=== PATIENT | male | born 1930 | race Caucasian/White ===

== ENCOUNTER 2020-01-23 11:12 | Inpatient (IN) | payer MEDICARE, BC ==
[~2020-01-23] VITALS: Ht 167.6 cm; Wt 80.5 kg
[~2020-01-23 11:12] MED LIST: ALLO100T PO; ATOR20TA PO; BUPR150T8 PO; CITA20TA28 PO; CLOP75TA35 PO; LANS30CA37 PO; OLME20TA15 PO
[2020-01-23 11:58] LABS: BASOPHILS % (AUTO) 0.4 % (0-1); EOSINOPHILS # (AUTO) 0.1 X10'3 (0-0.9); EOSINOPHILS % (AUTO) 0.8 % (0-6); HEMOGLOBIN 14.9 g/dl (14.0-17.9); LYMPHOCYTES % (AUTO) 8.7 % (21-51); MEAN CORPUSCULAR HEMOGLOBIN 33.2 PG (27.0-31.0); MEAN CORPUSCULAR HGB CONC 32.3 g/dL (33.0-36.5); MEAN CORPUSCULAR VOLUME 102.5 FL (78-98); MEAN PLATELET VOLUME 9.2 FL (7.4-10.4); MONOCYTES % (AUTO) 8.8 % (2-12); NEUTROPHILS # (AUTO) 9.5 X10'3 (1.8-7.7); NEUTROPHILS % (AUTO) 81.3 % (42-75); PLATELET COUNT 191 X10'3 (140-440); RED BLOOD COUNT 4.49 X10'6 (4.70-6.10); WHITE BLOOD COUNT 11.7 X10'3 (4.5-11.0)
[2020-01-23 12:14] LABS: ALANINE AMINOTRANSFERASE 478 U/L (12-78); ALBUMIN 3.1 G/DL (3.4-5.0); ALBUMIN/GLOBULIN RATIO 0.9 (1.1-1.5); ALKALINE PHOSPHATASE 402 IU/L (46-116); ANION GAP 9 (8-16); ASPARTATE AMINO TRANSFERASE 193 U/L (10-37); BILIRUBIN,TOTAL 1.5 MG/DL (0.1-1.0); BLOOD UREA NITROGEN 41 MG/DL (7-18); BUN/CREATININE RATIO 25.3 (5.4-32.0); CALCIUM 8.5 MG/DL (8.5-10.1); CHLORIDE 108 MMOL/L (99-107); CREATININE 1.62 MG/DL (0.60-1.10); GLUCOSE 93 MG/DL (70-104); POTASSIUM 4.3 MMOL/L (3.5-5.1); SODIUM 141 MMOL/L (135-145); TOTAL CARBON DIOXIDE 23.6 MMOL/L (24-32); TOTAL PROTEIN 6.6 G/DL (6.4-8.2); eGFR 41 ML/MIN
[2020-01-23 12:56] LABS: GIANT PLATELET FEW; LARGE PLATELETS FEW; PLATELET ESTIMATE NORMAL
[2020-01-23 13:18] LABS: D-DIMER 2.05 MG/L FEU (0-0.50); PARTIAL THROMBOPLASTIN TIME 25 SECONDS (22-32)
[2020-01-23 13:30] LABS: LIPASE 202 U/L (73-393); MAGNESIUM 2.4 MG/DL (1.5-2.4)
[2020-01-23] MEDS ORDERED: piperacillin/tazo 3.375gm/50ml 50 ML IV ONE (13:50)
[2020-01-23] MEDS ORDERED: ondansetron/PF 4mg/2ml inj IV PRN (13:55)
[2020-01-23] MEDS ORDERED: magnesium hydroxide 30ml (MOM) UD suspension PO PRN (13:55)
[2020-01-23] MEDS ORDERED: acetaminophen 325mg tablet PO PRN (13:55)
[2020-01-23] MEDS ORDERED: HYDROcodone/acetaminophen 5mg/325mg tablet PO PRN (13:55)
[2020-01-23] MEDS ORDERED: morphine 2 MG/ML inj. syringe IV PRN ×2 (13:55)
[2020-01-23] MEDS ORDERED: mag hydrox/Alum hydrox/simeth 30ml oral suspension PO PRN (13:55)
--- NOTE | 2020-01-23 13:56 | NUR ---
Attempted to collect urine for UA. Pt unable to provide enough for sample.
[2020-01-23] MEDS ORDERED: BUPR150T6 PO (14:39)
[2020-01-23] MEDS ORDERED: OMEP-50 PO (14:39)
[2020-01-23] MEDS ORDERED: METO25TA6 PO (14:39)
[2020-01-23] MEDS ORDERED: AZIT-63 PO (14:39)
[2020-01-23] MEDS ORDERED: OLME20TA14 PO (14:39)
[2020-01-23] MEDS ORDERED: ALBU17AE26 PO (14:39)
[2020-01-23] MEDS: furosemide 20 MG/2 ML vial IV SCH ×2 (14:43→21:27)
[2020-01-23 15:32] VITALS: BP 114/51
[2020-01-23 15:38] LABS: CLARITY,URINE CLEAR (Clear); COLOR,URINE YELLOW (Yellow); GLUCOSE, URINE NEGATIVE (Neg); KETONES,URINE NEGATIVE (Neg); LEUKOCYTE ESTERASE ,URINE NEGATIVE (Neg); NITRITES, URINE NEGATIVE (Neg); OCCULT BLOOD,URINE NEGATIVE (Neg); PH,URINE 5.5 (4.8-8.0); PROTEIN,URINE TRACE mg/dl (Neg)
[2020-01-23 15:39] LABS: UA COLLECTION TYPE CLN CATCH MIDSTREAM
[2020-01-23 15:46] LABS: BACTERIA,URINE FEW /HPF (Neg); COARSE GRANULAR CAST 0-3 /LPF (NEGATIVE); MUCUS STRANDS MODERATE /LPF (Neg); RBC,URINE NONE SEEN /HPF (0-2); SQUAMOUS EPITHELIAL CELL,UR MODERATE /LPF (FEW); WBC,URINE 0-4 /HPF (0-4)
[2020-01-23 18:00] VITALS: BP 115/83
--- NOTE | 2020-01-23 18:04 | NUR ---
Problems reprioritized. Patient report given, questions answered & plan of care reviewed with PREETI Pierce.
--- NOTE | 2020-01-23 18:05 | NUR ---
Patient in room PCU 3025. I have received report from Haritha Urban RN and had the opportunity to ask questions and assume patient care.
[2020-01-23] MEDS: metoprolol tartrate 25mg tablet PO SCH (20:00)
[2020-01-23] MEDS ORDERED: atorvastatin 20mg tablet PO SCH (21:00)
[2020-01-23] MEDS: citalopram 20mg tablet PO SCH (21:21)
[2020-01-23] MEDS: clopidogrel 75mg tablet PO SCH (21:21)
[2020-01-23] MEDS: allopurinol 100mg tablet PO SCH (21:27)
[2020-01-23] MEDS: losartan 50mg tablet PO SCH (21:28)
[2020-01-23 22:00] VITALS: BP 122/84
[2020-01-24] VITALS (7 sets, daily range): BP systolic 95–128; BP diastolic 38–64
[2020-01-24 05:52] LABS: BASOPHILS % (AUTO) 0.2 % (0-1); EOSINOPHILS # (AUTO) 0.1 X10'3 (0-0.9); EOSINOPHILS % (AUTO) 1.1 % (0-6); HEMATOCRIT 41.2 % (42.0-52.0); HEMOGLOBIN 13.3 g/dl (14.0-17.9); LYMPHOCYTES # (AUTO) 1.4 X10'3 (1.1-4.8); LYMPHOCYTES % (AUTO) 14.1 % (21-51); MEAN CORPUSCULAR HEMOGLOBIN 32.9 PG (27.0-31.0); MEAN CORPUSCULAR HGB CONC 32.4 g/dL (33.0-36.5); MEAN CORPUSCULAR VOLUME 101.6 FL (78-98); MEAN PLATELET VOLUME 9.4 FL (7.4-10.4); MONOCYTES % (AUTO) 9.7 % (2-12); NEUTROPHILS # (AUTO) 7.4 X10'3 (1.8-7.7); NEUTROPHILS % (AUTO) 74.9 % (42-75); PLATELET COUNT 172 X10'3 (140-440); RED BLOOD COUNT 4.05 X10'6 (4.70-6.10); RED CELL DISTRIBUTION WIDTH 14.9 % (11.5-14.5); WHITE BLOOD COUNT 9.9 X10'3 (4.5-11.0)
--- NOTE | 2020-01-24 06:17 | NUR ---
Problems reprioritized. Patient report given, questions answered & plan of care reviewed with Haritha ÁLVAREZ.
[2020-01-24 06:18] LABS: ALANINE AMINOTRANSFERASE 342 U/L (12-78); ALBUMIN 2.7 G/DL (3.4-5.0); ALBUMIN/GLOBULIN RATIO 0.9 (1.1-1.5); ALKALINE PHOSPHATASE 315 IU/L (46-116); ANION GAP 6 (8-16); ASPARTATE AMINO TRANSFERASE 116 U/L (10-37); BILIRUBIN,TOTAL 1.3 MG/DL (0.1-1.0); BLOOD UREA NITROGEN 40 MG/DL (7-18); BUN/CREATININE RATIO 25.5 (5.4-32.0); CALCIUM 8.4 MG/DL (8.5-10.1); CHLORIDE 109 MMOL/L (99-107); CREATININE 1.57 MG/DL (0.60-1.10); GLUCOSE 71 MG/DL (70-104); POTASSIUM 3.8 MMOL/L (3.5-5.1); SODIUM 143 MMOL/L (135-145); TOTAL CARBON DIOXIDE 27.6 MMOL/L (24-32); TOTAL PROTEIN 5.6 G/DL (6.4-8.2); eGFR 42 ML/MIN
--- NOTE | 2020-01-24 06:26 | NUR ---
Patient in room PCU 3025. I have received report from Theo ÁLVAREZ and had the opportunity to ask questions and assume patient care.
--- NOTE | 2020-01-24 06:26 | NUR ---
Patient in room U 3025. I have received report from Theo ÁLVAREZ and had the opportunity to ask questions and assume patient care. Pt is stable sleeping in room.
[2020-01-24] MEDS: pantoprazole 40mg Tablet.DR PO SCH (07:29)
[2020-01-24] MEDS: buPROPion SR 150mg tablet PO SCH (07:40)
[2020-01-24] MEDS: enoxaparin 40mg/0.4ml syringe SUBCUT SCH (07:42)
[2020-01-24] MEDS: furosemide 20 MG/2 ML vial IV SCH ×2 (07:44→19:59)
[2020-01-24] MEDS: metoprolol tartrate 25mg tablet PO SCH ×2 (08:00→19:26)
--- NOTE | 2020-01-24 10:16 | NUR ---
Held metoprolol due to pts b/p being low, rechecked b/p still low at 1010, measured automatic cuff 88/28 (48), 100/44 (62), manual 95/50 (65). Pt states "feels fine" no change in mentation.
--- NOTE | 2020-01-24 16:14 | NUR ---
Malnutrition consult: Pt reports 2-13 lb wt loss with decreased appetite per malnutrition risk screen with RN. Pt with no recent wt hx however appears well developed/well nourished per ED report with current overweight BMI. Pt reports decreased PO intake secondary to postprandial early satiety per H&P. Pt currently on a heart healthy diet documented with 100% PO intake at breakfast and lunch meeting nutrient needs, although decreased PO intake is expected given geriatric age. Pt with BLE 2+ mild edema and no documented decrease in muscle strength. Pt currently lacks a minimum of two criteria for malnutrition. Will continue to follow. Addendum: 01/24/20 at [address] Amended: Links added.
--- NOTE | 2020-01-24 18:18 | NUR ---
Problems reprioritized. Patient report given, questions answered & plan of care reviewed with PREETI Pham.
--- NOTE | 2020-01-24 18:18 | NUR ---
[place] documentation: I have reviewed and agree with all interventions, assessments performed and documented by PREETI Bridges.
--- NOTE | 2020-01-24 18:18 | NUR ---
Problems reprioritized. Patient report given, questions answered & plan of care reviewed with Vero Roach.
--- NOTE | 2020-01-24 18:18 | NUR ---
[place] Medication Administration: For this medication-pass time frame, all medication were reviewed, dispensed, administered and documented per hospital policy by PREETI Bridges.
[2020-01-24] MEDS: citalopram 20mg tablet PO SCH (19:58)
[2020-01-24] MEDS: clopidogrel 75mg tablet PO SCH (19:58)
[2020-01-24] MEDS: allopurinol 100mg tablet PO SCH (19:59)
[2020-01-24] MEDS: losartan 50mg tablet PO SCH (21:00)
[2020-01-25 02:00] VITALS: BP 108/48
[2020-01-25 06:00] VITALS: BP 122/60
[2020-01-25 06:03] LABS: ALBUMIN 2.7 G/DL (3.4-5.0); ANION GAP 11 (8-16); BLOOD UREA NITROGEN 32 MG/DL (7-18); BUN/CREATININE RATIO 23.9 (5.4-32.0); CALCIUM 7.9 MG/DL (8.5-10.1); CHLORIDE 108 MMOL/L (99-107); CREATININE 1.34 MG/DL (0.60-1.10); GLUCOSE 82 MG/DL (70-104); POTASSIUM 3.3 MMOL/L (3.5-5.1); SODIUM 145 MMOL/L (135-145); TOTAL CARBON DIOXIDE 26.1 MMOL/L (24-32); eGFR 50 ML/MIN
[2020-01-25 06:09] LABS: BASOPHILS % (AUTO) 0.2 % (0-1); EOSINOPHILS # (AUTO) 0.2 X10'3 (0-0.9); HEMATOCRIT 41.4 % (42.0-52.0); HEMOGLOBIN 13.8 g/dl (14.0-17.9); LYMPHOCYTES # (AUTO) 1.3 X10'3 (1.1-4.8); LYMPHOCYTES % (AUTO) 14.4 % (21-51); MEAN CORPUSCULAR HEMOGLOBIN 33.7 PG (27.0-31.0); MEAN CORPUSCULAR HGB CONC 33.3 g/dL (33.0-36.5); MEAN PLATELET VOLUME 9.6 FL (7.4-10.4); MONOCYTES # (AUTO) 0.9 X10'3 (0-0.9); MONOCYTES % (AUTO) 9.7 % (2-12); NEUTROPHILS # (AUTO) 6.9 X10'3 (1.8-7.7); NEUTROPHILS % (AUTO) 73.7 % (42-75); PLATELET COUNT 173 X10'3 (140-440); RED BLOOD COUNT 4.09 X10'6 (4.70-6.10); RED CELL DISTRIBUTION WIDTH 14.9 % (11.5-14.5); WHITE BLOOD COUNT 9.4 X10'3 (4.5-11.0)
--- NOTE | 2020-01-25 06:19 | NUR ---
Problems reprioritized. Patient report given, questions answered & plan of care reviewed with PREETI Zamora.
--- NOTE | 2020-01-25 06:30 | NUR ---
Received report from Vero ÁLVAREZ
[2020-01-25] MEDS: buPROPion SR 150mg tablet PO SCH (07:38)
[2020-01-25] MEDS: pantoprazole 40mg Tablet.DR PO SCH (07:38)
[2020-01-25] MEDS: enoxaparin 40mg/0.4ml syringe SUBCUT SCH (07:39)
[2020-01-25] MEDS: furosemide 20 MG/2 ML vial IV SCH (07:39)
[2020-01-25] MEDS: metoprolol tartrate 25mg tablet PO SCH (07:45)
[2020-01-25] MEDS ORDERED: FURO-150 PO (10:23)
[2020-01-25 10:32] LABS: ALANINE AMINOTRANSFERASE 265 U/L (12-78); ALBUMIN/GLOBULIN RATIO 0.8 (1.1-1.5); ALKALINE PHOSPHATASE 278 IU/L (46-116); ASPARTATE AMINO TRANSFERASE 75 U/L (10-37); BILIRUBIN,DIRECT 0.4 MG/DL (0-0.3); BILIRUBIN,TOTAL 1.4 MG/DL (0.1-1.0); TOTAL PROTEIN 5.9 G/DL (6.4-8.2)
[2020-01-25 11:00] VITALS: BP 134/71
--- NOTE | 2020-01-25 13:59 | NUR ---
Patient was discharged IV and tele was removed from patient. Patient was alert and oriented at time of discharge. Medication was called into [facility] on [address]
== END 2020-01-25 13:22 | disposition home or self-care (01) | DRG 291 ==
LOC: ER 11:13 → ED HOLD 13:54 → PCU 3S 15:26
PROVIDERS: ADMIT Internal Medicine; ATTEND Internal Medicine
DX: I13.0 Hypertensive heart and chronic kidney disease with heart failure and stage 1 through stage 4 chronic kidney disease, or unspecified chronic kidney disease (principal); I50.33 Acute on chronic diastolic (congestive) heart failure; E87.2 Acidosis; N17.9 Acute kidney failure, unspecified; E78.5 Hyperlipidemia, unspecified; F32.9 Major depressive disorder, single episode, unspecified; G47.30 Sleep apnea, unspecified; K80.20 Calculus of gallbladder without cholecystitis without obstruction; G62.9 Polyneuropathy, unspecified; G89.29 Other chronic pain; K21.9 Gastro-esophageal reflux disease without esophagitis; M10.9 Gout, unspecified; I25.10 Atherosclerotic heart disease of native coronary artery without angina pectoris; K76.1 Chronic passive congestion of liver; N18.9 Chronic kidney disease, unspecified; Z79.02 Long term (current) use of antithrombotics/antiplatelets; Z85.46 Personal history of malignant neoplasm of prostate; Z87.891 Personal history of nicotine dependence; Z90.49 Acquired absence of other specified parts of digestive tract; Z95.0 Presence of cardiac pacemaker; Z95.1 Presence of aortocoronary bypass graft; Z79.899 Other long term (current) drug therapy; I25.2 Old myocardial infarction
CPT/HCPCS: 36415; 71045; 76700; 80048; 80053; 80076; 81001; 83605; 83690; 83735; 83880; 84145; 85025; 85379; 85610; 85730; 87040; 87081; 93306; 99285; G0378; J1650; J1940; J2543

== ENCOUNTER 2020-01-29 16:19 | Inpatient (IN) | payer MEDICARE, BC ==
[~2020-01-29] VITALS: Ht 167.6 cm; Wt 77.3 kg
[~2020-01-29 16:19] MED LIST changes: +ALBU17AE26 PO; +AZIT-63 PO; +BUPR150T6 PO; -BUPR150T8 PO; +FURO-150 PO; -LANS30CA37 PO; +METO25TA6 PO; +OLME20TA14 PO; -OLME20TA15 PO; +OMEP-50 PO
[2020-01-29 17:06] LABS: BASOPHILS % (AUTO) 0.2 % (0-1); EOSINOPHILS % (AUTO) 0.1 % (0-6); HEMATOCRIT 45.6 % (42.0-52.0); HEMOGLOBIN 14.8 g/dl (14.0-17.9); LYMPHOCYTES # (AUTO) 0.9 X10'3 (1.1-4.8); LYMPHOCYTES % (AUTO) 8.3 % (21-51); MEAN CORPUSCULAR HEMOGLOBIN 33.4 PG (27.0-31.0); MEAN CORPUSCULAR HGB CONC 32.5 g/dL (33.0-36.5); MEAN CORPUSCULAR VOLUME 102.9 FL (78-98); MEAN PLATELET VOLUME 9.5 FL (7.4-10.4); MONOCYTES # (AUTO) 0.9 X10'3 (0-0.9); MONOCYTES % (AUTO) 7.5 % (2-12); NEUTROPHILS # (AUTO) 9.6 X10'3 (1.8-7.7); NEUTROPHILS % (AUTO) 83.9 % (42-75); PLATELET COUNT 182 X10'3 (140-440); RED BLOOD COUNT 4.43 X10'6 (4.70-6.10); WHITE BLOOD COUNT 11.4 X10'3 (4.5-11.0)
[2020-01-29] MEDS ORDERED: FURO20TA4 PO (17:18)
[2020-01-29 17:23] LABS: ALANINE AMINOTRANSFERASE 838 U/L (12-78); ALBUMIN 3.2 G/DL (3.4-5.0); ALBUMIN/GLOBULIN RATIO 0.9 (1.1-1.5); ALKALINE PHOSPHATASE 282 IU/L (46-116); ANION GAP 10 (8-16); ASPARTATE AMINO TRANSFERASE 789 U/L (10-37); BILIRUBIN,TOTAL 3.1 MG/DL (0.1-1.0); BLOOD UREA NITROGEN 44 MG/DL (7-18); BUN/CREATININE RATIO 21.3 (5.4-32.0); CALCIUM 8.6 MG/DL (8.5-10.1); CHLORIDE 103 MMOL/L (99-107); CREATININE 2.07 MG/DL (0.60-1.10); GLUCOSE 90 MG/DL (70-104); SODIUM 139 MMOL/L (135-145); TOTAL CARBON DIOXIDE 26.5 MMOL/L (24-32); TOTAL PROTEIN 6.6 G/DL (6.4-8.2); eGFR 31 ML/MIN
[2020-01-29] MEDS ORDERED: aspirin 81mg tab.chew PO ONE ×2 (18:05→18:20)
[2020-01-29] MEDS ORDERED: heparin 10,000 units/1 ML INJ IV PRN (18:20)
[2020-01-29] MEDS ORDERED: heparin 10,000 units/1 ML INJ IV ONE (18:20)
[2020-01-29 18:54] LABS: PARTIAL THROMBOPLASTIN TIME 27 SECONDS (22-32)
[2020-01-29] MEDS: heparin 25,000 UNIT/250ml bag 250 ML IV SCH (19:22)
--- NOTE | 2020-01-29 21:17 | NUR ---
HOSPITALIST AT BEDSIDE
[2020-01-29] MEDS ORDERED: acetaminophen 325mg tablet PO PRN ×2 (21:40)
[2020-01-29] MEDS ORDERED: magnesium 4gm in 100ml NS 100 ML IV PRN (21:40)
[2020-01-29] MEDS ORDERED: HYDROcodone/acetaminophen 5mg/325mg tablet PO PRN (21:40)
[2020-01-29] MEDS ORDERED: potassium CL 10mEq/100ml bag 100 ML IV PRN ×2 (21:40)
[2020-01-29] MEDS ORDERED: morphine 2 MG/ML inj. syringe IV PRN (21:40)
[2020-01-29] MEDS ORDERED: magnesium 2GM in 50ml NS 50 ML IV PRN (21:40)
[2020-01-29] MEDS ORDERED: ondansetron/PF 4mg/2ml inj IV PRN (21:40)
[2020-01-29] MEDS ORDERED: potassium Cl 20 mEq SR tablet PO PRN ×2 (21:40)
[2020-01-29] MEDS ORDERED: magnesium Cl slow-release 64mg tablet PO PRN (21:40)
[2020-01-29 22:15] VITALS: BP 95/49
[2020-01-30 02:00] VITALS: BP 102/58
[2020-01-30] MEDS: heparin 25,000 UNIT/250ml bag 250 ML IV SCH (05:19)
[2020-01-30 06:00] VITALS: BP 116/62
[2020-01-30 06:09] LABS: BASOPHILS % (AUTO) 0.1 % (0-1); EOSINOPHILS % (AUTO) 0 % (0-6); HEMATOCRIT 42.7 % (42.0-52.0); HEMOGLOBIN 13.6 g/dl (14.0-17.9); LYMPHOCYTES # (AUTO) 1.6 X10'3 (1.1-4.8); LYMPHOCYTES % (AUTO) 10.5 % (21-51); MEAN CORPUSCULAR HEMOGLOBIN 32.9 PG (27.0-31.0); MEAN CORPUSCULAR HGB CONC 31.9 g/dL (33.0-36.5); MEAN CORPUSCULAR VOLUME 103.2 FL (78-98); MEAN PLATELET VOLUME 10.1 FL (7.4-10.4); MONOCYTES # (AUTO) 1.5 X10'3 (0-0.9); MONOCYTES % (AUTO) 10.2 % (2-12); NEUTROPHILS # (AUTO) 11.8 X10'3 (1.8-7.7); NEUTROPHILS % (AUTO) 79.2 % (42-75); PLATELET COUNT 136 X10'3 (140-440); RED BLOOD COUNT 4.14 X10'6 (4.70-6.10); RED CELL DISTRIBUTION WIDTH 15.9 % (11.5-14.5)
--- NOTE | 2020-01-30 06:34 | NUR ---
Problems reprioritized. Patient report given, questions answered & plan of care reviewed with GAYLA ÁLVAREZ.
[2020-01-30 06:37] LABS: ALBUMIN 2.9 G/DL (3.4-5.0); ALBUMIN/GLOBULIN RATIO 0.9 (1.1-1.5); ALKALINE PHOSPHATASE 244 IU/L (46-116); ANION GAP 11 (8-16); BILIRUBIN,TOTAL 2.9 MG/DL (0.1-1.0); BLOOD UREA NITROGEN 56 MG/DL (7-18); BUN/CREATININE RATIO 21.2 (5.4-32.0); CALCIUM 8.4 MG/DL (8.5-10.1); CHLORIDE 103 MMOL/L (99-107); CREATININE 2.64 MG/DL (0.60-1.10); GLUCOSE 54 MG/DL (70-104); MAGNESIUM 2.3 MG/DL (1.5-2.4); SODIUM 139 MMOL/L (135-145); TOTAL CARBON DIOXIDE 25.1 MMOL/L (24-32); eGFR 23 ML/MIN
[2020-01-30 06:38] LABS: ALANINE AMINOTRANSFERASE 2283 U/L (12-78)
--- NOTE | 2020-01-30 06:38 | NUR ---
Patient in room U 3014B. I have received report from Rosa ÁLVAREZ and had the opportunity to ask questions and assume patient care. Patient sitting up at edge of bed, no signs of distress, heparin gtt infusing.
--- NOTE | 2020-01-30 06:44 | NUR ---
Per report and verified with RN, heparin gtt is infusing at 7mL/hr currently. 2 RN verified and IV spreadsheet entered to correct rate.
[2020-01-30] MEDS: docusate sod 100mg capsule PO SCH ×2 (07:33→20:23)
[2020-01-30 07:34] LABS: ASPARTATE AMINO TRANSFERASE 3141 U/L (10-37)
[2020-01-30] MEDS: heparin, porcine 5000 units/ml vial SQ SCH ×2 (08:00→20:23)
[2020-01-30] MEDS: K and/or MAG REPLACEMENT MC SCH ×2 (08:00→20:00)
[2020-01-30] MEDS ORDERED: furosemide 40mg/4ml inj IV SCH (08:00)
--- NOTE | 2020-01-30 09:26 | NUR ---
AM dose of heparin SubQ held since patient is on a heparin gtt.
[2020-01-30] MEDS ORDERED: SINCALIDE IV ONE (09:30)
[2020-01-30] MEDS ORDERED: NORMAL SALINE IV ONE (09:30)
--- NOTE | 2020-01-30 10:02 | NUR ---
Malnutrition consult: Pt reports 2-13 lb wt loss with decreased appetite per malnutrition risk screen with RN. Recent wt hx in EMR is 80.45 kg from 01/22, current documented wt is 77.27 kg, however both weights are pt stated. Pt currently on Lasix during admit as well as home rx, wt likely to fluctuate d/t changes in fluid status. Per H&P 01/22 at last admit pt reported decreased PO intake secondary to postprandial early satiety which, is expected given geriatric age, however pt was with 100% PO intake 01/23-01/24 on heart healthy diet meeting nutrient needs. Pt currently with an active heart healthy diet order however NPO at this time. Pt with no documented significant decrease in muscle strength and with RLE 2+ mild edema. Pt appears well developed, well nourished per ED report and with current overweight BMI. Pt currently lacks a minimum of two criteria for malnutrition. Will continue to follow. Addendum: 01/30/20 at [address] Amended: Links added.
[2020-01-30 10:47] LABS: D-DIMER 1.52 MG/L FEU (0-0.50)
--- NOTE | 2020-01-30 10:55 | NUR ---
PAGER ID: [phone] MESSAGE: Haritha morales [id number]. Jannette Orellana [id number]. FYI d-dimer is 1.52 and lipase 492. Hepatitis panel still pending. Do you want VQ and US? Thanks!
[2020-01-30 11:00] VITALS: BP 117/60
--- NOTE | 2020-01-30 13:05 | NUR ---
Patient off floor to [place] for VQ scan
--- NOTE | 2020-01-30 13:45 | NUR ---
Patient returned from [facility]
[2020-01-30 15:00] VITALS: BP 103/55
[2020-01-30 18:00] VITALS: BP 111/66
--- NOTE | 2020-01-30 18:28 | NUR ---
PAGER ID: [phone] MESSAGE: Haritha morales [id number]. Janentte Orellana [id number]. Pt has orders for heparin SubQ but also Plavix restarted. Do you want to hold heparin SubQ? Also home meds need to be reconciled. Thanks!
--- NOTE | 2020-01-30 18:29 | NUR ---
Spoke with Dr. Chance atkins to continue heparin SubQ and Plavix.
--- NOTE | 2020-01-30 18:40 | NUR ---
Problems reprioritized. Patient report given, questions answered & plan of care reviewed with Francisca ÁLVAREZ.
--- NOTE | 2020-01-30 18:46 | NUR ---
Patient in room U 3014. I have received report from PREETI Mg and had the opportunity to ask questions and assume patient care. Addendum: 01/30/20 at 1847 by Ambreen Esquivel RN Amended: Links added.
[2020-01-30] MEDS: metoprolol tartrate 25mg tablet PO SCH (20:23)
[2020-01-30] MEDS: citalopram 20mg tablet PO SCH (20:23)
[2020-01-30] MEDS: diatr meglu/diatrizoate 30ml oral sol.-(3 dose) bottle PO SCH (20:24)
[2020-01-30] MEDS: clopidogrel 75mg tablet PO SCH (20:24)
[2020-01-30] MEDS: allopurinol 100mg tablet PO SCH (20:24)
[2020-01-30] MEDS ORDERED: losartan 50mg tablet PO SCH (21:00)
[2020-01-30] MEDS ORDERED: clopidogrel 75mg tablet PO SCH (21:00)
[2020-01-30 22:00] VITALS: BP 105/54
[2020-01-31 02:00] VITALS: BP 103/55
--- NOTE | 2020-01-31 06:16 | NUR ---
Problems reprioritized. Patient report given, questions answered & plan of care reviewed with PREETI Shultz.
[2020-01-31 06:22] LABS: BASOPHILS % (AUTO) 0.1 % (0-1); EOSINOPHILS % (AUTO) 0.3 % (0-6); HEMATOCRIT 43.2 % (42.0-52.0); HEMOGLOBIN 13.9 g/dl (14.0-17.9); LYMPHOCYTES # (AUTO) 1.4 X10'3 (1.1-4.8); LYMPHOCYTES % (AUTO) 11.3 % (21-51); MEAN CORPUSCULAR HEMOGLOBIN 32.7 PG (27.0-31.0); MEAN CORPUSCULAR HGB CONC 32.1 g/dL (33.0-36.5); MEAN CORPUSCULAR VOLUME 101.8 FL (78-98); MONOCYTES # (AUTO) 1.3 X10'3 (0-0.9); MONOCYTES % (AUTO) 10.2 % (2-12); NEUTROPHILS # (AUTO) 9.6 X10'3 (1.8-7.7); NEUTROPHILS % (AUTO) 78.1 % (42-75); PLATELET COUNT 63 X10'3 (140-440); RED BLOOD COUNT 4.24 X10'6 (4.70-6.10); RED CELL DISTRIBUTION WIDTH 15.9 % (11.5-14.5); WHITE BLOOD COUNT 12.3 X10'3 (4.5-11.0)
--- NOTE | 2020-01-31 06:34 | NUR ---
Patient in room PCU 3014. I have received report from PREETI Espinosa and had the opportunity to ask questions and assume patient care.
[2020-01-31 06:38] LABS: ALBUMIN 2.9 G/DL (3.4-5.0); ALBUMIN/GLOBULIN RATIO 0.9 (1.1-1.5); ALKALINE PHOSPHATASE 240 IU/L (46-116); ANION GAP 13 (8-16); BLOOD UREA NITROGEN 72 MG/DL (7-18); BUN/CREATININE RATIO 22.5 (5.4-32.0); CALCIUM 8.2 MG/DL (8.5-10.1); CHLORIDE 102 MMOL/L (99-107); GLUCOSE 77 MG/DL (70-104); MAGNESIUM 2.5 MG/DL (1.5-2.4); POTASSIUM 4.9 MMOL/L (3.5-5.1); SODIUM 139 MMOL/L (135-145); TOTAL CARBON DIOXIDE 23.6 MMOL/L (24-32); eGFR 18 ML/MIN
[2020-01-31 06:42] LABS: ALANINE AMINOTRANSFERASE 2295 U/L (12-78); ASPARTATE AMINO TRANSFERASE 1834 U/L (10-37)
[2020-01-31 07:00] VITALS: BP 115/37
[2020-01-31 07:08] LABS: HBSAG SCREEN Negative (Negative); HEP A AB, IGM Negative (Negative); HEP B CORE AB, IGM Negative (Negative); HEPATITIS C ANTIBODY <0.1 s/co ratio (0.0-0.9)
[2020-01-31 07:19] LABS: ANISOCYTOSIS 1+; NUCLEATED RED BLOOD CELLS 2 /100WBC (0-0); PLATELET ESTIMATE DECREASED; TOTAL CELLS COUNTED 100
[2020-01-31] MEDS ORDERED: pantoprazole 40mg Tablet.DR PO SCH (07:30)
[2020-01-31] MEDS: heparin, porcine 5000 units/ml vial SQ SCH ×2 (08:00→20:56)
[2020-01-31] MEDS ORDERED: furosemide 40mg/4ml inj IV SCH (08:00)
[2020-01-31] MEDS: K and/or MAG REPLACEMENT MC SCH ×2 (08:00→20:39)
[2020-01-31] MEDS: diatr meglu/diatrizoate 30ml oral sol.-(3 dose) bottle PO SCH ×2 (09:12→21:00)
[2020-01-31] MEDS: metoprolol tartrate 25mg tablet PO SCH ×2 (09:12→20:59)
[2020-01-31] MEDS: buPROPion SR 150mg tablet PO SCH (09:14)
[2020-01-31] MEDS: docusate sod 100mg capsule PO SCH ×2 (09:14→20:00)
[2020-01-31 11:00] VITALS: BP 110/71
[2020-01-31 13:29] LABS: CLARITY,URINE CLEAR (Clear); COLOR,URINE YELLOW (Yellow); GLUCOSE, URINE NEGATIVE (Neg); KETONES,URINE NEGATIVE (Neg); LEUKOCYTE ESTERASE ,URINE NEGATIVE (Neg); NITRITES, URINE NEGATIVE (Neg); OCCULT BLOOD,URINE TRACE-INTACT (Neg); PROTEIN,URINE NEGATIVE (Neg); UROBILINOGEN,URINE 0.2 E.U/dL (0.2-1.0)
[2020-01-31 13:33] LABS: UA COLLECTION TYPE NON-SPECIFIED
[2020-01-31 13:34] LABS: BACTERIA,URINE FEW /HPF (Neg); MUCUS STRANDS FEW /LPF (Neg); RBC,URINE 0-2 /HPF (0-2); SQUAMOUS EPITHELIAL CELL,UR FEW /LPF (FEW); WBC,URINE 0-4 /HPF (0-4)
[2020-01-31 13:39] LABS: TOTAL PROTEIN,URINE RANDOM 18.8 MG/DL
[2020-01-31 14:03] LABS: UA EOSINOPHILS NO EOS /HPF
--- NOTE | 2020-01-31 16:00 | NUR ---
Pt back from HIDA scan
[2020-01-31 18:00] VITALS: BP 108/53
--- NOTE | 2020-01-31 18:22 | NUR ---
Problems reprioritized. Patient report given, questions answered & plan of care reviewed with PREETI Robertson.
--- NOTE | 2020-01-31 18:25 | NUR ---
Patient in room PCU 3016. I have received report from Lexii ÁLVAREZ and had the opportunity to ask questions and assume patient care.
[2020-01-31] MEDS: famotidine 20mg tablet PO SCH (20:56)
[2020-01-31] MEDS: clopidogrel 75mg tablet PO SCH (20:58)
[2020-01-31] MEDS: citalopram 20mg tablet PO SCH (20:58)
[2020-01-31] MEDS: allopurinol 100mg tablet PO SCH (20:58)
[2020-01-31 22:00] VITALS: BP 105/51
[2020-02-01 02:00] VITALS: BP 96/60
[2020-02-01 06:01] LABS: BASOPHILS % (AUTO) 0.1 % (0-1); EOSINOPHILS % (AUTO) 0.4 % (0-6); HEMATOCRIT 44.2 % (42.0-52.0); HEMOGLOBIN 14.3 g/dl (14.0-17.9); LYMPHOCYTES # (AUTO) 1.2 X10'3 (1.1-4.8); LYMPHOCYTES % (AUTO) 10.3 % (21-51); MEAN CORPUSCULAR HEMOGLOBIN 32.8 PG (27.0-31.0); MEAN CORPUSCULAR HGB CONC 32.3 g/dL (33.0-36.5); MEAN CORPUSCULAR VOLUME 101.5 FL (78-98); MEAN PLATELET VOLUME 9.7 FL (7.4-10.4); MONOCYTES % (AUTO) 8.9 % (2-12); NEUTROPHILS % (AUTO) 80.3 % (42-75); PLATELET COUNT 88 X10'3 (140-440); RED BLOOD COUNT 4.35 X10'6 (4.70-6.10); RED CELL DISTRIBUTION WIDTH 15.4 % (11.5-14.5); WHITE BLOOD COUNT 11.3 X10'3 (4.5-11.0)
--- NOTE | 2020-02-01 06:22 | NUR ---
Problems reprioritized. Patient report given, questions answered & plan of care reviewed with Andreea ÁLVAREZ.
[2020-02-01 06:25] LABS: ALBUMIN 2.8 G/DL (3.4-5.0); ALBUMIN/GLOBULIN RATIO 0.9 (1.1-1.5); ALKALINE PHOSPHATASE 231 IU/L (46-116); ANION GAP 9 (8-16); BILIRUBIN,TOTAL 1.7 MG/DL (0.1-1.0); BLOOD UREA NITROGEN 82 MG/DL (7-18); CALCIUM 8.4 MG/DL (8.5-10.1); CHLORIDE 104 MMOL/L (99-107); CREATININE 3.28 MG/DL (0.60-1.10); GLUCOSE 73 MG/DL (70-104); MAGNESIUM 2.7 MG/DL (1.5-2.4); POTASSIUM 4.8 MMOL/L (3.5-5.1); SODIUM 143 MMOL/L (135-145); TOTAL CARBON DIOXIDE 29.6 MMOL/L (24-32); TOTAL PROTEIN 5.9 G/DL (6.4-8.2); eGFR 18 ML/MIN
[2020-02-01 06:30] LABS: ALANINE AMINOTRANSFERASE 2022 U/L (12-78); ASPARTATE AMINO TRANSFERASE 1133 U/L (10-37)
--- NOTE | 2020-02-01 06:31 | NUR ---
Patient in room PCU 3016. I have received report from Marcelo ÁLVAREZ and had the opportunity to ask questions and assume patient care.
[2020-02-01 07:00] VITALS: BP 105/55
[2020-02-01 07:32] LABS: NUCLEATED RED BLOOD CELLS 6 /100WBC (0-0); TOTAL CELLS COUNTED 100
[2020-02-01 07:33] LABS: ANISOCYTOSIS 1+; PLATELET ESTIMATE DECREASED
[2020-02-01] MEDS: buPROPion SR 150mg tablet PO SCH (07:44)
[2020-02-01] MEDS: docusate sod 100mg capsule PO SCH ×2 (07:45→20:00)
[2020-02-01] MEDS: metoprolol tartrate 25mg tablet PO SCH ×2 (07:45→20:00)
[2020-02-01] MEDS: famotidine 20mg tablet PO SCH ×2 (07:45→20:56)
[2020-02-01] MEDS: K and/or MAG REPLACEMENT MC SCH ×2 (07:46→20:32)
[2020-02-01] MEDS: heparin, porcine 5000 units/ml vial SQ SCH ×2 (08:00→20:56)
--- NOTE | 2020-02-01 08:15 | NUR ---
HELD HEPARIN THIS AM, PLT COUNT 88
[2020-02-01 11:00] VITALS: BP 108/58
[2020-02-01] MEDS: normal saline 1000ml 1,000 ML IV SCH (14:17)
[2020-02-01 15:00] VITALS: BP 123/51
--- NOTE | 2020-02-01 18:12 | NUR ---
Problems reprioritized. Patient report given, questions answered & plan of care reviewed with Marcelo ÁLVAREZ.
--- NOTE | 2020-02-01 18:12 | NUR ---
Patient in room PCU 3016. I have received report from Andreea ÁLVAREZ and had the opportunity to ask questions and assume patient care.
[2020-02-01 19:00] VITALS: BP 103/73
[2020-02-01] MEDS: allopurinol 100mg tablet PO SCH (20:56)
[2020-02-01] MEDS: citalopram 20mg tablet PO SCH (20:56)
[2020-02-01] MEDS: clopidogrel 75mg tablet PO SCH (20:56)
[2020-02-01 23:00] VITALS: BP 105/54
[2020-02-02] VITALS (22 sets, daily range): BP systolic 84–122; BP diastolic 44–80
--- NOTE | 2020-02-02 01:00 | NUR ---
Patient in room PCU 3016. I have received report from MIGUEL A ÁLVAREZ and had the opportunity to ask questions and assume patient care.
--- NOTE | 2020-02-02 01:09 | NUR ---
Problems reprioritized. Patient report given, questions answered & plan of care reviewed with Nette ÁLVAREZ.
[2020-02-02 05:48] LABS: ALBUMIN 2.6 G/DL (3.4-5.0); ALBUMIN/GLOBULIN RATIO 0.9 (1.1-1.5); ALKALINE PHOSPHATASE 211 IU/L (46-116); ANION GAP 10 (8-16); ASPARTATE AMINO TRANSFERASE 592 U/L (10-37); BILIRUBIN,TOTAL 1.5 MG/DL (0.1-1.0); BLOOD UREA NITROGEN 75 MG/DL (7-18); BUN/CREATININE RATIO 27.2 (5.4-32.0); CALCIUM 8.2 MG/DL (8.5-10.1); CHLORIDE 106 MMOL/L (99-107); CREATININE 2.76 MG/DL (0.60-1.10); GLUCOSE 80 MG/DL (70-104); MAGNESIUM 2.5 MG/DL (1.5-2.4); SODIUM 142 MMOL/L (135-145); TOTAL PROTEIN 5.5 G/DL (6.4-8.2); eGFR 22 ML/MIN
[2020-02-02 05:50] LABS: ALANINE AMINOTRANSFERASE 1467 U/L (12-78); POTASSIUM 4.1 MMOL/L (3.5-5.1)
[2020-02-02 05:59] LABS: BASOPHILS % (AUTO) 0.1 % (0-1); EOSINOPHILS # (AUTO) 0.1 X10'3 (0-0.9); EOSINOPHILS % (AUTO) 0.6 % (0-6); HEMATOCRIT 41.7 % (42.0-52.0); HEMOGLOBIN 13.7 g/dl (14.0-17.9); LYMPHOCYTES % (AUTO) 10.4 % (21-51); MEAN CORPUSCULAR HEMOGLOBIN 33.2 PG (27.0-31.0); MEAN CORPUSCULAR HGB CONC 32.8 g/dL (33.0-36.5); MEAN CORPUSCULAR VOLUME 101.2 FL (78-98); MEAN PLATELET VOLUME 9.9 FL (7.4-10.4); MONOCYTES % (AUTO) 10.1 % (2-12); NEUTROPHILS # (AUTO) 7.4 X10'3 (1.8-7.7); NEUTROPHILS % (AUTO) 78.8 % (42-75); PLATELET COUNT 110 X10'3 (140-440); RED BLOOD COUNT 4.12 X10'6 (4.70-6.10); RED CELL DISTRIBUTION WIDTH 15.7 % (11.5-14.5); WHITE BLOOD COUNT 9.4 X10'3 (4.5-11.0)
--- NOTE | 2020-02-02 06:30 | NUR ---
Problems reprioritized. Patient report given, questions answered & plan of care reviewed with Andreea ÁLVAREZ.
--- NOTE | 2020-02-02 07:18 | NUR ---
Patient in room U 3016a. I have received report from PREETI Perdue and had the opportunity to ask questions and assume patient care. Patient resting in bed, all needs met at this time.
[2020-02-02] MEDS: K and/or MAG REPLACEMENT MC SCH ×2 (08:00→20:00)
[2020-02-02] MEDS: heparin, porcine 5000 units/ml vial SQ SCH ×2 (08:00→20:22)
[2020-02-02] MEDS: docusate sod 100mg capsule PO SCH ×2 (09:19→20:21)
[2020-02-02] MEDS: buPROPion SR 150mg tablet PO SCH (09:19)
[2020-02-02] MEDS: famotidine 20mg tablet PO SCH ×2 (09:19→20:21)
[2020-02-02] MEDS: metoprolol tartrate 25mg tablet PO SCH ×2 (09:19→20:00)
[2020-02-02] MEDS: normal saline 1000ml 1,000 ML IV SCH ×3 (10:00→17:01)
--- NOTE | 2020-02-02 10:01 | NUR ---
Held Heparin this morning, pt has procedure this morning
--- NOTE | 2020-02-02 10:06 | NUR ---
Spoke with nurse from GI lab. Order for PT INR to be done prior ERCP.
[2020-02-02] MEDS ORDERED: fentaNYL/PF 50MCG/1 ML 2ML syringe ONE (12:06)
[2020-02-02] MEDS ORDERED: MIDAZolam 5mg/5ml vial ONE (12:06)
[2020-02-02] MEDS ORDERED: diphenhydrAMINE 50 mg/ml inj ONE (12:06)
[2020-02-02] MEDS ORDERED: iohexol 300 MG/1 ML 50ml polymer ONE ×2 (12:07→12:16)
[2020-02-02] MEDS ORDERED: levoFLOXACIN-Levaquin 500mg/D5 100 ML IV ONE (12:07)
[2020-02-02] MEDS ORDERED: LIDOcaine Viscous 15ml cup ONE (12:07)
[2020-02-02] MEDS ORDERED: glucagon, human recombinant 1mg kit ONE (12:07)
--- NOTE | 2020-02-02 12:10 | NUR ---
Patient picked up by GI staff and is off the unit for his ERCP.
--- NOTE | 2020-02-02 16:17 | NUR ---
Pt returned from GI Lab, back in bed, post op vitals started. Will continue to monitor
--- NOTE | 2020-02-02 18:00 | NUR ---
Patient in room PCU 3016. I have received report from Andreea ÁLVAREZ and had the opportunity to ask questions and assume patient care.
--- NOTE | 2020-02-02 18:12 | NUR ---
[place] documentation: I have reviewed and agree with all interventions, assessments performed and documented by PREETI Jimenez.
--- NOTE | 2020-02-02 18:22 | NUR ---
Problems reprioritized. Patient report given, questions answered & plan of care reviewed with Nilda ÁLVAREZ.
[2020-02-02] MEDS: allopurinol 100mg tablet PO SCH (20:21)
[2020-02-02] MEDS: clopidogrel 75mg tablet PO SCH (20:21)
[2020-02-02] MEDS: citalopram 20mg tablet PO SCH (20:21)
[2020-02-03] MEDS: normal saline 1000ml 1,000 ML IV SCH ×3 (00:30→20:44)
[2020-02-03 02:00] VITALS: BP 118/58
[2020-02-03 05:16] LABS: BASOPHILS % (AUTO) 0.1 % (0-1); EOSINOPHILS % (AUTO) 0 % (0-6); HEMATOCRIT 42.8 % (42.0-52.0); HEMOGLOBIN 13.7 g/dl (14.0-17.9); LYMPHOCYTES # (AUTO) 0.5 X10'3 (1.1-4.8); LYMPHOCYTES % (AUTO) 4.4 % (21-51); MEAN CORPUSCULAR HEMOGLOBIN 32.9 PG (27.0-31.0); MEAN CORPUSCULAR VOLUME 102.8 FL (78-98); MEAN PLATELET VOLUME 9.2 FL (7.4-10.4); MONOCYTES # (AUTO) 0.7 X10'3 (0-0.9); MONOCYTES % (AUTO) 6.5 % (2-12); NEUTROPHILS # (AUTO) 9.9 X10'3 (1.8-7.7); PLATELET COUNT 122 X10'3 (140-440); RED BLOOD COUNT 4.16 X10'6 (4.70-6.10); RED CELL DISTRIBUTION WIDTH 15.9 % (11.5-14.5); WHITE BLOOD COUNT 11.1 X10'3 (4.5-11.0)
[2020-02-03 05:46] LABS: ALBUMIN 2.6 G/DL (3.4-5.0); ALBUMIN/GLOBULIN RATIO 0.9 (1.1-1.5); ALKALINE PHOSPHATASE 193 IU/L (46-116); ANION GAP 7 (8-16); ASPARTATE AMINO TRANSFERASE 345 U/L (10-37); BILIRUBIN,TOTAL 1.7 MG/DL (0.1-1.0); BLOOD UREA NITROGEN 63 MG/DL (7-18); BUN/CREATININE RATIO 28.1 (5.4-32.0); CALCIUM 7.7 MG/DL (8.5-10.1); CHLORIDE 110 MMOL/L (99-107); CREATININE 2.24 MG/DL (0.60-1.10); GLUCOSE 114 MG/DL (70-104); MAGNESIUM 2.4 MG/DL (1.5-2.4); POTASSIUM 4.2 MMOL/L (3.5-5.1); SODIUM 144 MMOL/L (135-145); TOTAL PROTEIN 5.5 G/DL (6.4-8.2); eGFR 28 ML/MIN
[2020-02-03 05:56] LABS: ALANINE AMINOTRANSFERASE 1140 U/L (12-78)
--- NOTE | 2020-02-03 06:19 | NUR ---
Problems reprioritized. Patient report given, questions answered & plan of care reviewed with Andreea ÁLVAREZ.
[2020-02-03 07:00] VITALS: BP 111/57
--- NOTE | 2020-02-03 07:06 | NUR ---
Patient in room PCU 3016. I have received report from Nilda ÁLVAREZ and had the opportunity to ask questions and assume patient care.
[2020-02-03] MEDS: K and/or MAG REPLACEMENT MC SCH ×2 (08:41→20:00)
[2020-02-03] MEDS: heparin, porcine 5000 units/ml vial SQ SCH ×2 (08:45→20:42)
[2020-02-03] MEDS: metoprolol tartrate 25mg tablet PO SCH ×2 (08:45→20:00)
[2020-02-03] MEDS: buPROPion SR 150mg tablet PO SCH (08:45)
[2020-02-03] MEDS: famotidine 20mg tablet PO SCH ×2 (08:45→20:43)
[2020-02-03] MEDS: docusate sod 100mg capsule PO SCH ×2 (08:45→20:42)
[2020-02-03 11:00] VITALS: BP 115/58
--- NOTE | 2020-02-03 12:45 | NUR ---
O2 Sat at rest on room air:92% If below 89%: Recovery O2 Sat at rest on ___LPM:___%:___% via (mask/nasal cannula, etc..) No further documentation is necessary. If O2 Sat did not drop below 89% on room air,ambulate patient on room air. O2 Sat while ambulating on room air: 83% Recovery O2 Sat while ambulating on __2_LPM:_95__% No further documentation is necessary. If patient does not drop below 89% while ambulating, he/she does not qualify for home O2.
--- NOTE | 2020-02-03 14:10 | NUR ---
Got a message about daughter complaining that patient seemed confused over the phone, notified Dr. Corona, received order for UA.
[2020-02-03 15:00] VITALS: BP 105/50
[2020-02-03 17:24] LABS: GLUCOSE, URINE NEGATIVE (Neg); KETONES,URINE NEGATIVE (Neg); LEUKOCYTE ESTERASE ,URINE NEGATIVE (Neg); NITRITES, URINE NEGATIVE (Neg); OCCULT BLOOD,URINE NEGATIVE (Neg); PH,URINE 5.5 (4.8-8.0); PROTEIN,URINE NEGATIVE (Neg)
[2020-02-03 17:34] LABS: CLARITY,URINE SLIGHTLY CLOUDY (Clear); COLOR,URINE DARK YELLOW (Yellow); UA COLLECTION TYPE CLN CATCH MIDSTREAM
[2020-02-03 17:35] LABS: RBC,URINE NONE SEEN /HPF (0-2); WBC,URINE 0-4 /HPF (0-4)
[2020-02-03 17:36] LABS: BACTERIA,URINE 1+ /HPF (Neg); MUCUS STRANDS MODERATE /LPF (Neg); SQUAMOUS EPITHELIAL CELL,UR NONE SEEN /LPF (FEW); TRANSITIONAL EPI CELLS,URINE FEW /HPF
[2020-02-03 18:00] VITALS: BP 123/50
--- NOTE | 2020-02-03 18:00 | NUR ---
Patient in room PCU 3016. I have received report from Andreea ÁLVAREZ and had the opportunity to ask questions and assume patient care.
--- NOTE | 2020-02-03 18:42 | NUR ---
Problems reprioritized. Patient report given, questions answered & plan of care reviewed with PREETI Balderas.
--- NOTE | 2020-02-03 18:43 | NUR ---
[place] documentation: I have reviewed and agree with all interventions, assessments performed and documented by PREETI Jimenez .
[2020-02-03] MEDS: allopurinol 100mg tablet PO SCH (20:42)
[2020-02-03] MEDS: citalopram 20mg tablet PO SCH (20:42)
[2020-02-03] MEDS: clopidogrel 75mg tablet PO SCH (20:43)
[2020-02-03 22:00] VITALS: BP 117/59
[2020-02-04 02:00] VITALS: BP 99/51
--- NOTE | 2020-02-04 06:32 | NUR ---
Problems reprioritized. Patient report given, questions answered & plan of care reviewed with Bere ÁLVAREZ.
--- NOTE | 2020-02-04 06:39 | NUR ---
Patient in room PCU 3016. I have received report from PREETI Perdue and had the opportunity to ask questions and assume patient care. Patient awake in bed and in no acute distress.
[2020-02-04 07:00] VITALS: BP 109/45
[2020-02-04] MEDS: K and/or MAG REPLACEMENT MC SCH (08:00)
[2020-02-04] MEDS: buPROPion SR 150mg tablet PO SCH (08:36)
[2020-02-04 08:37] VITALS: BP_SYST 109
[2020-02-04] MEDS: metoprolol tartrate 25mg tablet PO SCH (08:37)
[2020-02-04] MEDS: famotidine 20mg tablet PO SCH (08:37)
[2020-02-04] MEDS: docusate sod 100mg capsule PO SCH (08:37)
[2020-02-04] MEDS: heparin, porcine 5000 units/ml vial SQ SCH (08:39)
[2020-02-04 11:50] LABS: BASOPHILS % (AUTO) 0.4 % (0-1); EOSINOPHILS % (AUTO) 0.1 % (0-6); HEMATOCRIT 43.9 % (42.0-52.0); LYMPHOCYTES % (AUTO) 9.8 % (21-51); MEAN CORPUSCULAR HEMOGLOBIN 33.4 PG (27.0-31.0); MEAN CORPUSCULAR HGB CONC 31.9 g/dL (33.0-36.5); MEAN CORPUSCULAR VOLUME 104.8 FL (78-98); MONOCYTES # (AUTO) 0.9 X10'3 (0-0.9); MONOCYTES % (AUTO) 8.7 % (2-12); NEUTROPHILS # (AUTO) 8.5 X10'3 (1.8-7.7); PLATELET COUNT 127 X10'3 (140-440); RED BLOOD COUNT 4.19 X10'6 (4.70-6.10); RED CELL DISTRIBUTION WIDTH 16.2 % (11.5-14.5); WHITE BLOOD COUNT 10.5 X10'3 (4.5-11.0)
[2020-02-04 12:06] LABS: ALANINE AMINOTRANSFERASE 834 U/L (12-78); ALBUMIN 2.7 G/DL (3.4-5.0); ALBUMIN/GLOBULIN RATIO 0.9 (1.1-1.5); ALKALINE PHOSPHATASE 221 IU/L (46-116); ANION GAP 8 (8-16); ASPARTATE AMINO TRANSFERASE 191 U/L (10-37); BILIRUBIN,TOTAL 2.1 MG/DL (0.1-1.0); BLOOD UREA NITROGEN 65 MG/DL (7-18); BUN/CREATININE RATIO 28.3 (5.4-32.0); CALCIUM 8.1 MG/DL (8.5-10.1); CHLORIDE 110 MMOL/L (99-107); GLUCOSE 82 MG/DL (70-104); MAGNESIUM 2.4 MG/DL (1.5-2.4); PHOSPHORUS 4.1 MG/DL (2.3-4.5); POTASSIUM 4.5 MMOL/L (3.5-5.1); SODIUM 143 MMOL/L (135-145); TOTAL CARBON DIOXIDE 24.7 MMOL/L (24-32); TOTAL PROTEIN 5.7 G/DL (6.4-8.2); eGFR 27 ML/MIN
--- NOTE | 2020-02-04 12:22 | NUR ---
Called report to JOHN Hidalgo at [facility]. Awaiting pickup time for 1400.
[2020-02-04 13:02] LABS: NUCLEATED RED BLOOD CELLS 6 /100WBC (0-0); TOTAL CELLS COUNTED 100
[2020-02-04 13:04] LABS: ANISOCYTOSIS 1+; PLATELET ESTIMATE DECREASED
[2020-02-04 13:05] LABS: ELLIPTOCYTES FEW; POLYCHROMASIA 1+
--- NOTE | 2020-02-04 13:40 | NUR ---
[facility] All transfer instructions reviewed and questions answered appropriately. Home O2 that was delivered yesterday left with patient to [facility]. All other belongings collected and sent with patient. Report called at 1220 to JOHN Hidalgo. PIV discontinued and cannula intact. environmental monitoring technician discontinued. Patient picked up by [employer] and was wheeled down to the lobby.
== END 2020-02-04 13:47 | DRG 682 ==
LOC: ER 16:20 → ED HOLD 21:36 → PCU 3S 22:30
PROVIDERS: ADMIT Internal Medicine; ATTEND Family Medicine
PROC: CB121ZZ Planar Nuclear Medicine Imaging of Lungs and Bronchi using Technetium 99m (Tc-99m) (ICD-10-PCS; principal; 2020-01-30)
PROC: CF141ZZ Planar Nuclear Medicine Imaging of Gallbladder using Technetium 99m (Tc-99m) (ICD-10-PCS; 2020-01-31)
PROC: 0FJB8ZZ Inspection of Hepatobiliary Duct, Via Natural or Artificial Opening Endoscopic (ICD-10-PCS; 2020-02-02)
PROC: BF131ZZ Fluoroscopy of Gallbladder and Bile Ducts using Low Osmolar Contrast (ICD-10-PCS; 2020-02-02)
DX: N17.9 Acute kidney failure, unspecified (principal); I21.4 Non-ST elevation (NSTEMI) myocardial infarction; J96.00 Acute respiratory failure, unspecified whether with hypoxia or hypercapnia; G92 Toxic encephalopathy; I50.43 Acute on chronic combined systolic (congestive) and diastolic (congestive) heart failure; I13.0 Hypertensive heart and chronic kidney disease with heart failure and stage 1 through stage 4 chronic kidney disease, or unspecified chronic kidney disease; T50.905A Adverse effect of unspecified drugs, medicaments and biological substances, initial encounter; K80.20 Calculus of gallbladder without cholecystitis without obstruction; K76.1 Chronic passive congestion of liver; E78.5 Hyperlipidemia, unspecified; E86.9 Volume depletion, unspecified; F32.9 Major depressive disorder, single episode, unspecified; G47.30 Sleep apnea, unspecified; G62.9 Polyneuropathy, unspecified; G89.29 Other chronic pain; K21.9 Gastro-esophageal reflux disease without esophagitis; M10.9 Gout, unspecified; G47.33 Obstructive sleep apnea (adult) (pediatric); I25.10 Atherosclerotic heart disease of native coronary artery without angina pectoris; I50.82 Biventricular heart failure; K75.9 Inflammatory liver disease, unspecified; N18.3 Chronic kidney disease, stage 3 (moderate); Z66 Do not resuscitate; Z82.49 Family history of ischemic heart disease and other diseases of the circulatory system; Z90.49 Acquired absence of other specified parts of digestive tract; Z95.0 Presence of cardiac pacemaker; Z95.1 Presence of aortocoronary bypass graft; Z79.899 Other long term (current) drug therapy; Y92.238 Other place in hospital as the place of occurrence of the external cause
CPT/HCPCS: 36415; 43260; 71045; 74176; 76700; 76775; 78227; 78580; 80053; 80074; 81001; 82570; 83690; 83735; 83880; 84100; 84156; 84300; 84484; 85025; 85379; 85610; 85730; 87081; 87207; 93005; 93970; 96374; 96375; 97116; 97530; 99152; 99153; 99291; A4620; A9537; A9540; C1769; G0378; J1200; J1610; J1644; J1940; J1956; J2250; J2805; J3010; J7030; J7040; Q9963; Q9967

== ENCOUNTER 2020-02-04 17:11 | Emergency (ER) | payer MEDICARE, BC ==
[~2020-02-04] VITALS: Ht 167.6 cm; Wt 83.1 kg
[~2020-02-04 17:11] MED LIST changes: -FURO-150 PO; +FURO20TA4 PO
[2020-02-04 17:43] LABS: BASOPHILS % (AUTO) 0.1 % (0-1); EOSINOPHILS % (AUTO) 0 % (0-6); HEMATOCRIT 45.1 % (42.0-52.0); HEMOGLOBIN 14.2 g/dl (14.0-17.9); LYMPHOCYTES # (AUTO) 0.8 X10'3 (1.1-4.8); LYMPHOCYTES % (AUTO) 6.6 % (21-51); MEAN CORPUSCULAR HEMOGLOBIN 32.8 PG (27.0-31.0); MEAN CORPUSCULAR HGB CONC 31.5 g/dL (33.0-36.5); MEAN CORPUSCULAR VOLUME 103.9 FL (78-98); MEAN PLATELET VOLUME 9.8 FL (7.4-10.4); MONOCYTES # (AUTO) 1.1 X10'3 (0-0.9); MONOCYTES % (AUTO) 8.6 % (2-12); NEUTROPHILS # (AUTO) 10.7 X10'3 (1.8-7.7); NEUTROPHILS % (AUTO) 84.7 % (42-75); PLATELET COUNT 128 X10'3 (140-440); RED BLOOD COUNT 4.34 X10'6 (4.70-6.10); RED CELL DISTRIBUTION WIDTH 16.2 % (11.5-14.5); WHITE BLOOD COUNT 12.6 X10'3 (4.5-11.0)
[2020-02-04 18:01] LABS: ALBUMIN 2.9 G/DL (3.4-5.0); ALBUMIN/GLOBULIN RATIO 0.9 (1.1-1.5); ALKALINE PHOSPHATASE 242 IU/L (46-116); ANION GAP 12 (8-16); ASPARTATE AMINO TRANSFERASE 370 U/L (10-37); BILIRUBIN,TOTAL 2.9 MG/DL (0.1-1.0); BLOOD UREA NITROGEN 69 MG/DL (7-18); BUN/CREATININE RATIO 26.7 (5.4-32.0); CALCIUM 8.5 MG/DL (8.5-10.1); CHLORIDE 108 MMOL/L (99-107); CREATININE 2.58 MG/DL (0.60-1.10); GLUCOSE 68 MG/DL (70-104); SODIUM 143 MMOL/L (135-145); TOTAL CARBON DIOXIDE 22.6 MMOL/L (24-32); eGFR 24 ML/MIN
--- NOTE | 2020-02-04 18:18 | NUR ---
fannie, daughter wants an update [phone]
[2020-02-04 18:23] LABS: ALANINE AMINOTRANSFERASE 1003 U/L (12-78)
[2020-02-04] MEDS ORDERED: furosemide 10 MG/1 ML 10ml inj IV ONE (18:30)
[2020-02-04] MEDS ORDERED: furosemide 40mg/4ml inj IV ONE (18:35)
[2020-02-04 18:59] LABS: NUCLEATED RED BLOOD CELLS 6 /100WBC (0-0); TOTAL CELLS COUNTED 100
[2020-02-04 19:01] LABS: ANISOCYTOSIS 2+; PLATELET ESTIMATE DECREASED
[2020-02-04 19:21] VITALS: BP 120/58
[2020-02-07] MEDS ORDERED: CLOP75TA35 PO (12:44)
[2020-02-07] MEDS ORDERED: POLY17PO10 PO (12:49)
[2020-02-07] MEDS ORDERED: ACET-1008 PO (12:49)
[2020-02-07] MEDS ORDERED: ATR0.5NEB IH (12:49)
[2020-02-07] MEDS ORDERED: DOCU-148 PO (12:49)
[2020-02-07] MEDS ORDERED: FAMO-128 PO (12:49)
[2020-02-07] MEDS ORDERED: FURO-150 PO (12:49)
[2020-02-07] MEDS ORDERED: POTA10TA10 PO (12:49)
[2020-02-07] MEDS ORDERED: ALB0.5UD IH (12:49)
== END 2020-02-04 19:20 ==
LOC: ER 17:12
DX: N17.9 Acute kidney failure, unspecified (principal); I13.0 Hypertensive heart and chronic kidney disease with heart failure and stage 1 through stage 4 chronic kidney disease, or unspecified chronic kidney disease; N18.9 Chronic kidney disease, unspecified; I50.9 Heart failure, unspecified; R09.02 Hypoxemia; I25.10 Atherosclerotic heart disease of native coronary artery without angina pectoris; K21.9 Gastro-esophageal reflux disease without esophagitis; G89.29 Other chronic pain; F32.9 Major depressive disorder, single episode, unspecified; Z90.49 Acquired absence of other specified parts of digestive tract; Z98.890 Other specified postprocedural states; Z79.899 Other long term (current) drug therapy
CPT/HCPCS: 96374; 99285; J1940; 36415; 71045; 80053; 83880; 84484; 85025; 99284